=== PATIENT | female | born 1955 | race Caucasian/White ===

== ENCOUNTER → 2017-01-16 | Outpatient (CLI) | payer MEDICARE ==
--- NOTE | 2017-01-16 16:36 | CT ---
EXAMINATION TYPE: CT abdomen pelvis wo/w con DATE OF EXAM: 01/16/2017 HISTORY: Left lower quadrant and left flank pain x [address] DLP: 3084.50mGycm Automated Exposure Control for Dose Reduction was Utilized. CONTRAST: CT scan of the abdomen and pelvis is performed with oral and without and with IV Contrast, patient in jected with 100 mL of Omnipaque 300. COMPARISON: CT abdomen and pelvis March 04, 2014 FINDINGS: LUNG BASES: No significant abnormality is appreciated. LIVER/GB: No significant abnormality is appreciated. PANCREAS: No significant abnormality is seen. SPLEEN: No significant abnormality is seen. ADRENALS: No significant abnormality is seen. KIDNEYS: Noncontrast images show no renal calculi bilaterally. Postcontrast images show symmetric cor tical medullary uptake and excretion from both kidneys. There is fullness of bilateral renal pelvis i s with mild calyceal dilatation. There is mild hydroureter bilaterally without obstructing mass or ca lculi clearly seen. Numerous pelvic phleboliths are seen. No suspicious intraluminal mass or calculus in the bladder is present. BOWEL: Oral contrast reaches level of terminal ileum. There is no suspicious small or large bowel dil atation. UTERUS/ADNEXA: Uterus is anteverted in shape and lobulated in contour, underlying fibroids are suspec juan. LYMPH NODES: No greater than 1cm abdominal or pelvic lymph nodes are appreciated. OSSEOUS STRUCTURES: Disc space narrowing L3-L4 and L5-S1 levels is present. Multilevel spurring and s pine is seen. There is facet arthropathy mid to lower lumbar levels. OTHER: No significant additional abnormality is seen. IMPRESSION: No renal stones or obstructing ureter calculi are evident bilaterally. There is symmetric mild bilateral hydronephrosis of uncertain etiology. There is no delayed excretion in either kidney. Suspect fibroid uterus similar to prior study. No significant new or acute finding is seen to accoun t for patient's symptoms.
== END | disposition home or self-care (01) ==
LOC: RADCTMAIN 14:24
PROVIDERS: ATTEND Specialist
DX: N13.30 Unspecified hydronephrosis (principal)
CPT/HCPCS: 74178; Q9967

== ENCOUNTER → 2017-02-21 | Outpatient (CLI) | payer MEDICARE ==
--- NOTE | 2017-02-21 16:09 | US ---
EXAMINATION TYPE: US venous doppler duplex LE RT DATE OF EXAM: 02/21/2017 3:19 PM COMPARISON: NONE CLINICAL HISTORY: M25.561 PAIN RT KNEE,M17.11 OSTEOARTHRITIS,I82.4Z1 ACUTE EMB. Right calf pain SIDE PERFORMED: Right TECHNIQUE: The lower extremity deep venous system is examined utilizing real time linear array sonog kan with graded compression, doppler sonography and color-flow sonography. VESSELS IMAGED: External Iliac Vein (EIV) Common Femoral Vein Deep Femoral Vein Greater Saphenous Vein * Femoral Vein Popliteal Vein Small Saphenous Vein * Proximal Calf Veins (* superficial vessels) Grayscale, color doppler, spectral doppler imaging performed of the deep veins of the lower extremity . There is normal flow, compressibility, vascular waveforms . Right Leg: Negative for DVT, large, complex fluid collection within posterior calf= 9.3 x 1.9 x 8.3 cm ?etiology Results called to Ghazala at 's office at time of exam IMPRESSION: No evidence for DVT. Large complex collection posterior calf of uncertain etiology.
== END | disposition home or self-care (01) ==
LOC: RADUSWWP 14:15
PROVIDERS: ATTEND Orthopaedic Surgery
DX: I87.8 Other specified disorders of veins (principal); M17.11 Unilateral primary osteoarthritis, right knee; M23.331 Other meniscus derangements, other medial meniscus, right knee; R60.1 Generalized edema

== ENCOUNTER → 2017-04-16 | Outpatient (CLI) | payer MEDICARE ==
--- NOTE | 2017-04-17 07:45 | BD ---
EXAMINATION TYPE: MG DEXA axial skeleton. DATE OF EXAM: 04/16/2017 COMPARISON: DEXA bone scan October 03, 2011 \\ CLINICAL HISTORY: Postmenopausal female Height: 64 IN Weight: 249 LBS FRAX RISK QUESTIONS: Alcohol (3 or more units per day): NO Family History (Parent hip fracture): NO Glucocorticoids (More than 3mos): NO (Ex: prednisone, prednisolone, methylprednisolone, dexamethasone, and hydrocortisone). History of Fracture in Adulthood: NO Secondary Osteoporosis: 1. Type 1 Diabetes: NO 2. Hyperthyroidism: NO 3. Menopause before 45: NO 4. Malnutrition: NO 5. Chronic liver disease: NO Rheumatoid Arthritis: NO Current Tobacco Use: NO RISK FACTORS HISTORY OF: Surgery to Spine: PT HAD SURGERY TO LSPINE When: 2007 Postmenopausal woman: AGE 57 Lost more than 2 inches in height since high school: YES 3 " MEDICATIONS: Additional Medications: VIT D, ATENOLOL, ATORVASTATIN, CELECOXIB, TRAMADOL, ECOTRIN, CLARITIN D, FLON ASE EXAM MEASUREMENTS: Bone mineral densitometry was performed using the [employer] System. PT HAD L SPINE SURGERY IN 2009 Bone mineral density about the R hip (g/cm2): 1.037 Bone mineral density about the L hip (g/cm2): 1.049 T Score values are as follows: -----R Neck: 0.0 -----L Neck: 0.1 -----R Total: 1.0 -----L Total: 0.9 Bone mineral density has: Decreased -4.0% since study of: 10/03/2011 IMPRESSION: Normal (Values between +1 and -1 indicate normal bone mass). Consider repeating this study in 5 year s or sooner if there is some new clinical indication. NOTE: T-SCORE=SD OF THE YOUNG ADULT MEAN.
--- NOTE | 2017-04-17 11:19 | MM ---
Reason for exam: screening (asymptomatic). Last mammogram was performed 1 year and 1 month ago. History: Patient is postmenopausal. Benign right mammotome panel of the right breast, May 20, 2008. Took hormonal contraceptives for 4 years. Physical Findings: A clinical breast exam by your physician is recommended on an annual basis and results should be correlated with mammographic findings. MG 3D Screening Mammo W/Cad Bilateral CC and MLO view(s) were taken. Prior study comparison: March 13, 2016, bilateral MG 3d screening mammo w/cad. January 04, 2015, bilateral MG screening mammo w CAD. There are scattered fibroglandular densities. Finding: There are typically benign dystrophic, round calcifications in both breasts. Previous mammotome biopsy in the right breast. There is a chronic nodularity in the left breast. There is no discrete abnormality. ASSESSMENT: Benign, BI-RAD 2 RECOMMENDATION: Routine screening mammogram of both breasts in 1 year.
== END | disposition home or self-care (01) ==
LOC: RADMAMWWP 14:43
PROVIDERS: ATTEND Obstetrics & Gynecology
DX: Z12.31 Encounter for screening mammogram for malignant neoplasm of breast (principal); Z13.820 Encounter for screening for osteoporosis
CPT/HCPCS: 77080; 77063; G0202

== ENCOUNTER → 2017-06-24 | Outpatient (CLI) | payer MEDICARE ==
[2017-06-24 12:21] LABS: CH 25.9; CHCM 29.5; HCT 48.9 % (34.0-46.0); HDW 2.29; HGB 14.8 gm/dL (11.4-16.0); Hypochromasia Marked; MCH 26.8 pg (25.0-35.0); MCHC 30.3 g/dL (31.0-37.0); MCV 88.4 fL (80.0-100.0); Mean Platelet Volume 7.3; RBC 5.54 m/uL (3.80-5.40); WBC 8.8 k/uL (3.8-10.6)
[2017-06-24 12:28] LABS: INR 1.1 (<1.2); Partial Thromboplastin Time 24.7 sec (22.0-30.0); Prothrombin Time 10.9 sec (9.0-12.0)
[2017-06-24 12:44] LABS: ALT 39 U/L (9-52); AST 27 U/L (14-36); Alkaline Phosphatase 67 U/L (38-126); Anion Gap 8 mmol/L; Blood Urea Nitrogen 23 mg/dL (7-17); Calcium 9.7 mg/dL (8.4-10.2); Carbon Dioxide 28 mmol/L (22-30); Chloride 103 mmol/L (98-107); Glucose 68 mg/dL (74-99); Non-African American GFR(MDRD) >60 (>60 ml/min/1.73 sqM); Potassium 4.6 mmol/L (3.5-5.1); Sodium 139 mmol/L (137-145); Total Bilirubin 0.4 mg/dL (0.2-1.3); Total Protein 7.5 g/dL (6.3-8.2)
[2017-06-24 12:46] LABS: Appearance,Urine Clear (Clear); Bacteria,Urine Rare /hpf; Bilirubin,Urine Negative (Negative); Glucose,Urine (UA) Negative (Negative); Ketones,Urine Negative (Negative); Leukocyte Esterase,Urine Trace (Negative); Mucus,Urine Rare /hpf; Nitrite,Urine Negative (Negative); Particle Count 2201; Protein,Urine Negative (Negative); RBC,Urine 5 /hpf (0-5); Specific Gravity,Urine 1.013 (1.001-1.035); Squamous Epithelial Cell,Urine 1 /hpf (0-4); UA Billing (MACRO vs. MICRO) MICRO; Urobilinogen,Urine <2.0 mg/dL (<2.0); WBC,Urine 2 /hpf (0-5)
== END | disposition home or self-care (01) ==
LOC: LABPAT 11:43
PROVIDERS: ATTEND Orthopaedic Surgery
DX: Z01.812 Encounter for preprocedural laboratory examination (principal)
CPT/HCPCS: 36415; 80053; 81001; 85027; 85610; 85730; 87070

== ENCOUNTER → 2017-10-15 | Outpatient (CLI) | payer MEDICARE ==
[2017-10-15 12:30] LABS: Blood Urea Nitrogen 20 mg/dL (7-17)
== END | disposition home or self-care (01) ==
LOC: LABWHC1 11:27
PROVIDERS: ATTEND Physical Medicine & Rehabilitation
DX: Z01.818 Encounter for other preprocedural examination (principal); N28.9 Disorder of kidney and ureter, unspecified; M48.062 Spinal stenosis, lumbar region with neurogenic claudication; M47.817 Spondylosis without myelopathy or radiculopathy, lumbosacral region; M96.1 Postlaminectomy syndrome, not elsewhere classified; M54.5 Low back pain; M54.16 Radiculopathy, lumbar region
CPT/HCPCS: 36415; 82565; 84520

== ENCOUNTER → 2019-01-12 | Outpatient (CLI) | payer MEDICARE ==
--- NOTE | 2019-01-13 11:37 | CT ---
EXAMINATION TYPE: CT abdomen pelvis wo/w con DATE OF EXAM: 01/12/2019 COMPARISON: This exam 01/16/2017 HISTORY: LT side pain radiating into back for several years. CT DLP: 2799 mGycm Automated exposure control for dose reduction was used. TECHNIQUE: Helical acquisition of images was performed from the lung bases through the pelvis. CONTRAST: Performed with Oral Contrast and with IV Contrast, patient injected with 100 mL of Isovue 300. FINDINGS: LUNG BASES: No significant abnormality is appreciated. LIVER/GB: No significant abnormality is appreciated. PANCREAS: No significant abnormality is seen. SPLEEN: No significant abnormality is seen. ADRENALS: No significant abnormality is seen. KIDNEYS: Prominent renal collecting systems are again noted as on prior exam with some prominence of the right ureter. Small cortical cyst on the left is stable FREE AIR: No free air is visualized. RETROPERITONEAL ADENOPATHY: None visualized REPRODUCTIVE ORGANS: Uterus is bulky as on prior exam URINARY BLADDER: No significant abnormality is seen. PELVIC ADENOPATHY: None visualized. OSSEOUS STRUCTURES: No interval change is seen. BOWEL: Retained fecal debris is present throughout the distribution of the colon. Appendix is not se en. OTHER: IMPRESSION: CORRELATE FOR FECAL STASIS. FIBROID UTERUS. BILATERAL HYDRONEPHROSIS OF UNCERTAIN ETIOLOGY, THERE MAY BE URETEROPELVIC JUNCTION STENOSIS ON THE LEFT
== END | disposition home or self-care (01) ==
LOC: RADCTMAIN 15:32
PROVIDERS: ATTEND Urology
DX: D25.9 Leiomyoma of uterus, unspecified (principal); N13.30 Unspecified hydronephrosis
CPT/HCPCS: 74178; Q9967

== ENCOUNTER → 2019-01-21 | Outpatient (CLI) | payer MEDICARE ==
[~2019-01-21] MED LIST: FUROSEMIDE 10 MG/ML 2 ML VIAL IV NR
--- NOTE | 2019-01-22 12:39 | NM ---
EXAMINATION TYPE: NM lasix renogram DATE OF EXAM: 01/21/2019 COMPARISON: CT scan 01/12/2019 HISTORY: Left lower quadrant pain Following administration of 10.1 mCi Tc 99m MAG3 with 20mg Lasix. Immediate images post injection FINDINGS: Left: 55.3 %. Right: 44.7 %. Max renal flow left: 3 minutes. Max renal flow right: 44.7 minutes. Satisfactory accumulation of radiotracer within both renal collecting systems. After the administrati on of Lasix, there is excretion from both collecting systems. T 1/2 left: 13 minutes minutes. T 1/2 right: 13.3 minutes minutes. IMPRESSION: Split renal function of 55% on the left and 45% on the right. Time/activity curves are fairly symmetr ic with prompt excretion and uptake. The T1/2 time is indeterminate half-time.
== END | disposition home or self-care (01) ==
LOC: RADNMMAIN 13:48
PROVIDERS: ATTEND Urology
DX: R10.32 Left lower quadrant pain (principal)
CPT/HCPCS: 78708; A9562

== ENCOUNTER → 2019-08-16 | Outpatient (CLI) | payer MEDICARE ==
--- NOTE | 2019-08-30 14:29 | MM ---
Reason for exam: screening (asymptomatic). Last mammogram was performed 2 years and 4 months ago. History: Patient is postmenopausal. Benign right mammotome panel of the right breast, May 20, 2008. Took hormonal contraceptives for 4 years. Physical Findings: A clinical breast exam by your physician is recommended on an annual basis and results should be correlated with mammographic findings. MG 3D Screening Mammo W/Cad Bilateral CC and MLO view(s) were taken. Prior study comparison: April 16, 2017, bilateral MG 3d screening mammo w/cad. March 13, 2016, bilateral MG 3d screening mammo w/cad. The breast tissue is heterogeneously dense. This may lower the sensitivity of mammography. Benign appearing bilateral calcifications. No suspicious abnormality. Right biopsy marker noted. ASSESSMENT: Benign, BI-RAD 2 RECOMMENDATION: Routine screening mammogram of both breasts in 1 year.
== END | disposition home or self-care (01) ==
LOC: RADMAMWWP 14:39
PROVIDERS: ATTEND Family Medicine
DX: Z12.31 Encounter for screening mammogram for malignant neoplasm of breast (principal)
CPT/HCPCS: 77063; 77067

== ENCOUNTER → 2019-08-30 | Outpatient (CLI) | payer MEDICARE | END | disposition home or self-care (01) | LOC: RADMAMWWP 14:04 | PROVIDERS: ATTEND Family Medicine | DX: Z53.9 Procedure and treatment not carried out, unspecified reason (principal) ==

== ENCOUNTER → 2021-02-08 | Outpatient (CLI) | payer MEDICARE ==
--- NOTE | 2021-02-12 15:22 | MM ---
Reason for exam: screening (asymptomatic). Last mammogram was performed 1 year and 6 months ago. History: Patient is postmenopausal. Benign right mammotome panel of the right breast, May 20, 2008. Took hormonal contraceptives for 4 years. Physical Findings: A clinical breast exam by your physician is recommended on an annual basis and results should be correlated with mammographic findings. MG 3D Screening Mammo W/Cad Bilateral CC and MLO view(s) were taken. Prior study comparison: August 16, 2019, bilateral MG 3d screening mammo w/cad. April 16, 2017, bilateral MG 3d screening mammo w/cad. March 13, 2016, bilateral MG 3d screening mammo w/cad. January 04, 2015, bilateral MG screening mammo w CAD. There are scattered fibroglandular densities. Previous mammotome biopsy in the right breast. Superior asymmetric density anterior right MLO view incompletely disperses on 3D images and is more defined from prior exams. ASSESSMENT: Incomplete: need additional imaging evaluation, BI-RAD 0 RECOMMENDATION: Special view mammogram of the right breast. (3D) If lesion persists on supplemental views, image directed ultrasound is recommended. [facility] will attempt to contact patient to return for supplemental views and ultrasound if indicated.
== END | disposition home or self-care (01) ==
LOC: RADMAMWWP 11:02
PROVIDERS: ATTEND Family Medicine
DX: Z12.31 Encounter for screening mammogram for malignant neoplasm of breast (principal); Z78.0 Asymptomatic menopausal state; Z79.3 Long term (current) use of hormonal contraceptives
CPT/HCPCS: 77063; 77067

== ENCOUNTER → 2021-02-14 | Outpatient (CLI) | payer MEDICARE ==
--- NOTE | 2021-02-14 14:16 | USB ---
EXAMINATION TYPE: US breast workup limited RT DATE OF EXAM: 02/14/2021 COMPARISON: Mammogram same date CLINICAL HISTORY: R92.8 abnormal mammogram. Findings: Targeted right breast ultrasound was performed from 9-12 o'clock and in the retroareolar region and a xillary tail. There is no sonographic correlate for the oblong right upper outer breast asymmetry. IMPRESSION: No sonographic correlate for the right upper outer breast asymmetry. Follow-up right diagnostic mammo gram is recommended in 6 months. BI-RADS 3, probably benign.
--- NOTE | 2021-02-14 15:18 | MM ---
Reason for exam: additional evaluation requested from abnormal screening. Last mammogram was performed less than 1 month ago. History: Patient is postmenopausal. Benign right mammotome panel of the right breast, May 20, 2008. Took hormonal contraceptives for 4 years. Physical Findings: Nurse did not find any significant physical abnormalities on exam. MG 3D Work Up W/Cad RT LM and spot compression MLO view(s) were taken of the right breast. Prior study comparison: February 08, 2021, bilateral MG 3d screening mammo w/cad. August 16, 2019, bilateral MG 3d screening mammo w/cad. There are scattered fibroglandular densities. There is a persistent oblong asymmetry in the upper outer right breast approximately 6cm from nipple measuring 1.7cm. and ultrasound is recommended. These results were verbally communicated with the patient and result sheet given to the patient on 02/14/21. ASSESSMENT: Incomplete: need additional imaging evaluation, BI-RAD 0 RECOMMENDATION: Ultrasound of the right breast.
== END | disposition home or self-care (01) ==
LOC: RADMAMWWP 13:01
PROVIDERS: ATTEND Family Medicine
DX: R92.8 Other abnormal and inconclusive findings on diagnostic imaging of breast (principal); Z78.0 Asymptomatic menopausal state; Z79.3 Long term (current) use of hormonal contraceptives
CPT/HCPCS: 77065; 76642; G0279; 77061

== ENCOUNTER → 2021-08-28 | Outpatient (CLI) | payer MEDICARE ==
--- NOTE | 2021-08-28 09:02 | MM ---
Reason for exam: follow-up at short interval from prior study. Last mammogram was performed 6 months ago. History: Patient is postmenopausal. Benign right mammotome panel of the right breast, May 20, 2008. Took hormonal contraceptives for 4 years. Physical Findings: Nurse did not find any significant physical abnormalities on exam. MG 3D Diag Mammo W/Cad MONTEZ Bilateral CC, MLO, and XCCL view(s) were taken. Prior study comparison: February 14, 2021, right breast MG 3d work up w/cad RT. February 08, 2021, bilateral MG 3d screening mammo w/cad. There are scattered fibroglandular densities. Previous mammotome biopsy in the right breast. The previous right superior asymmetry has not persisted. No significant new findings when compared with previous films. These results were verbally communicated with the patient and result sheet given to the patient on 08/28/21. ASSESSMENT: Benign, BI-RAD 2 RECOMMENDATION: Follow-up diagnostic mammogram of both breasts in 1 year.
== END | disposition home or self-care (01) ==
LOC: RADMAMWWP 08:09
PROVIDERS: ATTEND Family Medicine
DX: R92.8 Other abnormal and inconclusive findings on diagnostic imaging of breast (principal)
CPT/HCPCS: 77066; G0279; 77062

== ENCOUNTER → 2023-11-10 | Outpatient (CLI) | payer MEDICARE ==
--- NOTE | 2023-11-11 12:45 | MM ---
Reason for Exam: Screening (asymptomatic). Last mammogram was performed 1 year(s) and 1 month(s) ago. Patient History: Menarche at age 14. First Full-Term at age 28. Postmenopausal. Patient used Hormonal Contraceptives for 4 years. 05/20/2008, Benign Core Biopsy on the right side. Risk Values: Martita 5 year model risk: 2.2%. NCI Lifetime model risk: 7.9%. Prior Study Comparison: 02/14/2021 Right Diagnostic Mammogram, [facility]. 08/28/2021 Bilateral Diagnostic Mammogram, [facility]. 10/08/2022 Bilateral MG 3D screening mammo w/cad, [facility]. Tissue Density: There are scattered areas of fibroglandular density. Findings: Analyzed By CAD. There is no suspicious group of microcalcifications or new suspicious mass in either breast. Overall Assessment: Benign, BI-RAD 2 Management: Screening Mammogram of both breasts in 1 year. . Patient should continue monthly self-breast exams. A clinical breast exam by your physician is recommended on an annual basis. This exam should not preclude additional follow-up of suspicious palpable abnormalities. Note on Martita scores and lifetime risk: 1. A Martita score greater than 3% is considered moderate risk. If this is the case, consider specialist referral to assess eligibility for a risk reducing agent. 2. If overall lifetime risk for the development of breast cancer is 20% or higher, the patient may qualify for future screening with alternating mammogram and breast MRI. Electronically signed and approved by: Sukhdev Antunez M.D. Radiologis
== END | disposition home or self-care (01) ==
LOC: RADMAMWWP 08:58
PROVIDERS: ATTEND Family Medicine
DX: Z12.31 Encounter for screening mammogram for malignant neoplasm of breast (principal); Z78.0 Asymptomatic menopausal state
CPT/HCPCS: 77063; 77067